=== PATIENT | male | born 1945 ===

== ENCOUNTER → 2023-02-14 07:44 | Outpatient (CLI) | payer MEDICARE, SELFPAY ==
--- NOTE | 2023-02-14 | DI.US.S_ITS ---
PROCEDURE: US PERIPH VENOUS LOW EXTREM RT INDICATIONS: RIGHT LEG SWELLING TECHNIQUE: Real-time imaging, as well as color and pulse Doppler interrogation, were performed of the lower extremity deep veins from the inguinal ligament to the popliteal fossa. COMPARISON: None. FINDINGS: The common femoral, femoral and popliteal veins are normally compressible, and free of intraluminal thrombus. Color and pulse Doppler demonstrate normal phasic intraluminal flow. There is normal augmentation response to distal compression maneuver. There is a filling defect within the peripheral GSV in the area of pain. IMPRESSION: Superficial thrombosis of the peripheral great saphenous vein, corresponding to the region of pain. Dictated by: Louis Schafer M.D. on 02/14/2023 at 12:45 Approved by: Louis Schafer M.D. on 02/14/2023 at 12:46
== END ==
PROVIDERS: PCP Family Medicine; Referring Provider Family Medicine; Visit Provider Family Medicine
DX: I82.811 Embolism and thrombosis of superficial veins of right lower extremity (principal); M79.89 Other specified soft tissue disorders
CPT/HCPCS: 93971